=== PATIENT | female | born 2000 | race African-American/Black ===

== ENCOUNTER 2019-02-20 20:00 | Emergency (ER) | payer OTHER ==
[~2019-02-20] VITALS: Ht 162.6 cm; Wt 70.5 kg
[2019-02-20 20:03] VITALS: BP 133/84
--- NOTE | 2019-02-20 20:06 | NUR ---
TO ED 05 WITH STEADY GAIT. REPORT TO PREET SWENSON .
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
[2019-02-20 20:38] LABS: APPEARANCE,URINE HAZY (CLEAR); BILIRUBIN,URINE NEGATIVE (NEGATIVE); COLOR,URINE YELLOW (YELLOW); LEUKOCYTE ESTERASE ,URINE 1+ (NEGATIVE); NITRITE, URINE NEGATIVE (NEGATIVE); UGLUCOSE NEGATIVE (NEGATIVE)
--- NOTE | 2019-02-20 20:43 | NUR ---
XRAY AT BEDSIDE
[2019-02-20 20:53] LABS: RBC,URINE 0-5 /HPF (0-5)
[2019-02-20 20:54] LABS: BLOOD, URINE 3+ (NEGATIVE)
[2019-02-20 21:54] VITALS: BP 133/84
--- NOTE | 2019-02-20 21:54 | NUR ---
Patient discharged with v/s stable. Written and verbal after care instructions given and explained. Patient alert, oriented and verbalized understanding of instructions. Ambulatory with steady gait. All questions addressed prior to discharge. ID band removed. Patient advised to follow up with PMD. Rx of bactrim, flagyl, diflucan given. Patient educated on indication of medication including possible reaction and side effects. Opportunity to ask questions provided and answered.
[2019-02-23 06:17] LABS: CHLAMYDIA TRACHOMATIS AMP DNA Negative (Negative)
== END 2019-02-20 21:54 | disposition home or self-care (01) ==
LOC: MED 20:00
DX: L08.9 Local infection of the skin and subcutaneous tissue, unspecified (principal); N76.0 Acute vaginitis; B96.89 Other specified bacterial agents as the cause of diseases classified elsewhere; B37.3 Candidiasis of vulva and vagina; K59.00 Constipation, unspecified
CPT/HCPCS: 36415; 74018; 81001; 81025; 87086; 87210; 87491; 99284; Q0092